=== PATIENT | male | born 1995 | race Two or more races ===

== ENCOUNTER 2017-05-21 20:34 | Emergency (ER) | payer MEDICAID ==
[2017-05-21 21:33] VITALS: BP 144/62
--- NOTE | 2017-05-21 22:06 | EDM.PDOC ---
ED HPI GENERAL MEDICAL PROBLEM - General Chief Complaint: General Stated Complaint: COLD SYMPTOMS Time Seen by Provider: 05/21/17 21:38 Source of Information: Reports: Patient, Family, RN Notes Reviewed History Limitations: Reports: No Limitations - History of Present Illness INITIAL COMMENTS - FREE TEXT/NARRATIVE: 21-year-old female presents emergency department today with complaint of sore throat and nasal congestion she's been ill for about a week just started having fevers today difficult for her to swallow secondary to pain no exposures that she is aware of Throat Pain Score (Numeric/FACES): 6 - Related Data Allergies Allergy/AdvReac Type Severity Reaction Status Date / Time No Known Allergies Allergy Verified 05/21/17 21:34 Home Meds: Home Meds Levothyroxine Sodium [Levoxyl] 50 mcg PO DAILY 04/23/13 [History] buPROPion HCl [Wellbutrin Xl] 450 mg PO DAILY 04/23/13 [History] metFORMIN HCl [Glucophage Xr] 500 mg PO DAILY 04/23/13 [History] Escitalopram Oxalate [Lexapro] 20 mg PO DAILY 05/10/13 [History] atorvaSTATin [Lipitor] 10 mg PO DAILY 01/01/15 [History] Past Medical History Respiratory History: Reports: Asthma - Past Surgical History HEENT Surgical History: Reports: Adenoidectomy, Tonsillectomy Social & Family History - Tobacco Use Smoking Status *Q: Unknown Ever Smoked Years of Tobacco use: 3 Used Tobacco, but Quit: No Second Hand Smoke Exposure: No - Alcohol Use Days Per Week of Alcohol Use: 0 - Recreational Drug Use Recreational Drug Use: No Drug Use in Last 12 Months: Yes Recreational Drug Type: Reports: Marijuana/Hashish Recreational Drug Use Frequency: Not Used In Over 6 Months ED ROS GENERAL - Review of Systems Review Of Systems: See Below Constitutional: Reports: Fever, Chills HEENT: Reports: Sinus Problem, Throat Pain Respiratory: Reports: No Symptoms Cardiovascular: Reports: No Symptoms GI/Abdominal: Reports: No Symptoms : Reports: No Symptoms ED EXAM, GENERAL - Physical Exam Exam: See Below Exam Limited By: No Limitations General Appearance: Alert, WD/WN, No Apparent Distress Ears: Normal External Exam, Normal Canal, Hearing Grossly Normal, Normal TMs Nose: Normal Inspection, Normal Mucosa, No Blood Throat/Mouth: Normal Lips, Normal Teeth, Other (Exudative pharyngitis) Head: Atraumatic, Normocephalic Neck: Normal Inspection, Full Range of Motion, Lymphadenopathy (R), Lymphadenopathy (L) Respiratory/Chest: No Respiratory Distress, Lungs Clear, Normal Breath Sounds, No Accessory Muscle Use, Chest Non-Tender Cardiovascular: No Murmur Course - Vital Signs Last Recorded V/S: Last Vital Signs Temp 99.3 F 05/21/17 21:30 Pulse 110 H 05/21/17 21:30 Resp 14 05/21/17 21:30 BP 144/62 H 05/21/17 21:30 Pulse Ox 97 05/21/17 21:30 Departure - Departure Time of Disposition: 22:06 Disposition: Home, Self-Care 01 Condition: Good Clinical Impression: Exudative pharyngitis - Discharge Information Referrals: Kerry Guillermo PA [Primary Care Provider] - Additional Instructions: Take full course of antibiotics, Please followup with your primary care provider in 5-7 days if not better, please call return to the emergency department with worsening of symptoms. - Assessment/Plan Plan: Assessment Acuity = acute Site and laterality = exudative pharyngitis Etiology = probable bacterial cause Manifestations = fever Location of injury = Home Lab values = none Plan Empirically treat with amoxicillin 875 by mouth twice a day 7 days follow-up with primary care in 5-7 days for reevaluation if not better Patient was in agreement with the plan all questions were answered, they were instructed to return to the emergency department or call for worsening symptoms. This note was dictated using [employer] voice recognition software please call with any questions.
== END 2017-05-21 22:18 | disposition home or self-care (01) ==
LOC: JP.ED 20:34
DX: J02.9 Acute pharyngitis, unspecified (principal); Z98.890 Other specified postprocedural states; Z79.899 Other long term (current) drug therapy
CPT/HCPCS: 99283

== ENCOUNTER 2020-11-07 19:18 | Emergency (ER) | payer SELFPAY ==
[2020-11-07 19:41] VITALS: BP 148/87; PULSE 111
--- NOTE | 2020-11-07 20:27 | EDM.PDOC ---
ED HPI GENERAL MEDICAL PROBLEM - General Chief Complaint: Chest Pain Stated Complaint: CHEST PAIN AND HIGH BLOOD PRESSURE Time Seen by Provider: 11/07/20 19:50 Source of Information: Reports: Patient History Limitations: Reports: No Limitations - History of Present Illness INITIAL COMMENTS - FREE TEXT/NARRATIVE: 25-year-old female with intermittent left-sided chest pain off and on for weeks. It is very sharp and localized just left of the sternum. It is hard to breathe when she is having the pain, sometimes it lasts up to 10 to 15 minutes. Then there are days where she has no problem. No cough, no fever, no shortness of breath, no trauma. She had an uncle who had a heart attack when he was young so her family and employer wanted to get it checked. She has no pain now, she did have an episode of pain while in the waiting room. Duration: Week(s): (Intermittent for the past couple of weeks), Waxing/Waning Location: Reports: Chest (Very localized to the left anterior chest) Quality: Reports: Sharp, Stabbing Worsens with: Reports: Breathing (Breathing tends to make it worse while it is occurring) Associated Symptoms: Reports: No Other Symptoms Left Anterior Chest Pain Score (Numeric/FACES): 8 - Related Data Allergies Allergy/AdvReac Type Severity Reaction Status Date / Time No Known Allergies Allergy Verified 11/07/20 19:42 Home Meds: Home Meds Metoprolol Succinate 200 mg PO DAILY 11/07/20 [History] Spironolactone [Aldactone] 100 mg PO BID 11/07/20 [History] estradioL [Estradiol] 4 mg PO BID 11/07/20 [History] hydrALAZINE [Apresoline] 25 mg PO TID 11/07/20 [History] Past Medical History Cardiovascular History: Reports: Hypertension Respiratory History: Reports: Asthma Musculoskeletal History: Reports: Fracture, Other (See Below) Other Musculoskeletal History: chipped knee cap Psychiatric History: Reports: Bipolar, Depression Endocrine/Metabolic History: Reports: Obesity/BMI 30+ - Past Surgical History HEENT Surgical History: Reports: Adenoidectomy, Tonsillectomy Social & Family History - Tobacco Use Tobacco Use Status *Q: Former Tobacco User Years of Tobacco use: 15 Packs/Tins Daily: 0.5 Used Tobacco, but Quit: Yes Month/Year Tobacco Last Used: Second Hand Smoke Exposure: No - Caffeine Use Caffeine Use: Reports: Coffee - Alcohol Use Days Per Week of Alcohol Use: 7 Number of Drinks Per Day: 10 Total Drinks Per Week: 70 - Recreational Drug Use Recreational Drug Use: Yes Recreational Drug Type: Reports: Marijuana/Hashish Recreational Drug Use Frequency: Daily ED ROS GENERAL - Review of Systems Review Of Systems: See Below Constitutional: Denies: Fever, Chills HEENT: Reports: No Symptoms Respiratory: Reports: Pleuritic Chest Pain. Denies: Shortness of Breath Cardiovascular: Reports: Palpitations (Occasional skipped beats) GI/Abdominal: Denies: Abdominal Pain, Nausea, Vomiting Musculoskeletal: Reports: Other (Chest wall pain as mentioned) Skin: Reports: No Symptoms Neurological: Denies: Headache Psychiatric: Reports: No Symptoms ED EXAM, GENERAL - Physical Exam Exam: See Below Exam Limited By: No Limitations General Appearance: Alert, No Apparent Distress Eye Exam: Bilateral Eye: Normal Inspection Head: Atraumatic Neck: Supple, Non-Tender Respiratory/Chest: Lungs Clear, Other (The local area where she tends to get recurring pain is just slightly tender to palpation at this time) Cardiovascular: Regular Rate, Rhythm. No: Extra Beats GI/Abdominal: Other (Very obese, nontender) Course - Vital Signs Last Recorded V/S: Last Vital Signs Temp 98.5 F 11/07/20 19:39 Pulse 111 H 11/07/20 19:39 Resp 16 11/07/20 19:39 BP 148/87 H 11/07/20 19:39 Pulse Ox 97 11/07/20 19:39 - Orders/Labs/Meds Orders: Active Orders 24 hr Category Date Time Status Chest 2V [CR] Routine Exams 11/07/20 20:07 Taken - Re-Assessments/Exams Free Text/Narrative Re-Assessment/Exam: 11/07/20 20:26 This is in all likelihood musculoskeletal or an irritable intercostal muscle. A two-view chest x-ray was obtained, if this is normal I will encourage the patient to use some anti-inflammatories and continue her regular activity. 11/07/20 20:38 2 view chest x-ray is normal, recommending naproxen twice daily and increasing activity as tolerated. She can recheck in the future if not improving satisfactorily. Departure - Departure Time of Disposition: 21:01 Disposition: Home, Self-Care 01 Clinical Impression: Chest wall pain - Discharge Information Instructions: Chest Wall Pain Referrals: Kerry Guillermo PA [Primary Care Provider] - Forms: ED Department Discharge Care Plan Goals: 1 dose of Aleve or naproxen twice daily may be helpful. Try this for 7 to 10 days, recheck if not improving satisfactorily. Sepsis Event Note (ED) - Evaluation Sepsis Screening Result: No Definite Risk - Focused Exam Vital Signs: Vital Signs Temp Pulse Resp BP Pulse Ox 11/07/20 19:39 98.5 F 111 H 16 148/87 H 97 - My Orders Last 24 Hours: My Active Orders 11/07/20 20:07 Chest 2V [CR] Routine - Assessment/Plan Last 24 Hours: My Active Orders 11/07/20 20:07 Chest 2V [CR] Routine
--- NOTE | 2020-11-08 09:02 | CR ---
CHEST: 2 view CLINICAL HISTORY:Dyspnea COMPARISON:None FINDINGS: The heart size, pulmonary vascularity and hilar structures are normal. No infiltrate effusion or pneumothorax is seen. IMPRESSION: No acute cardiopulmonary process.
== END 2020-11-07 20:50 | disposition home or self-care (01) ==
LOC: JP.ED 19:18
DX: R07.89 Other chest pain (principal); J45.909 Unspecified asthma, uncomplicated; I10 Essential (primary) hypertension; E66.9 Obesity, unspecified; Z68.42 Body mass index [BMI] 45.0-49.9, adult; Z87.891 Personal history of nicotine dependence; Z79.899 Other long term (current) drug therapy
CPT/HCPCS: 71046; 71046-26; 99284-25